=== PATIENT | female | born 1975 | race Caucasian/White ===

== ENCOUNTER 2024-05-23 10:34 | Outpatient (CLI) | payer SELFPAY ==
--- NOTE | 2024-05-23 10:41 | XR_ITS ---
FINAL REPORT CLINICAL HISTORY: Bone Infection; right foot COMPARISON: None FINDINGS: AP, oblique and lateral views of the right foot were obtained. There is no prior exam for comparison. There is no acute fracture or dislocation. There is chronic appearing deformity of the 2nd metatarsal shaft, possibly posttraumatic. 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 The joint spaces are otherwise preserved. Soft tissues are normal. IMPRESSION: No acute osseous abnormality of the right foot. Reviewed, Interpreted and Dictated by Penny Dutton MD Transcribed by Coral Garcia Authenticated and [facility]
--- NOTE | 2024-05-23 10:41 | XR_ITS ---
FINAL REPORT CLINICAL HISTORY: Bone Infection; pt states right foot COMPARISON: None FINDINGS: AP, oblique and lateral views of the left foot were obtained. There is no prior exam for comparison. There is no acute fracture or dislocation. A hallux valgus deformity is present. 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 Soft tissues are normal. IMPRESSION: No acute osseous abnormality of the left foot. Reviewed, Interpreted and Dictated by Penny Dutton MD Transcribed by Coral Garcia Authenticated and [facility]
[2024-05-23 11:16] LABS: Basophils # 0.1 K/mm3 (0-0.2); Basophils % 1.2 % (0.1-2.0); Eosinophils # 0.4 K/mm3 (0.0-0.4); Eosinophils % 3.8 % (0.1-12.0); Hematocrit 41.2 % (37.0-47.0); Hemoglobin 14.6 g/dL (12.2-16.2); Lymphocytes # 2.5 K/mm3 (0.7-4.5); Mean Corpuscular HGB Conc 35.4 g/dL (31.8-35.4); Mean Corpuscular Hemoglobin 37.9 pg (27.0-31.2); Mean Platelet Volume 8.5 fl (7.4-10.4); Monocytes # 0.3 K/mm3 (0.1-1.0); Monocytes % 3.5 % (1.7-9.3); Neutrophils % 64.4 % (37.0-80.0); Platelet Count 277 K/mm3 (142-424); Red Blood Count 3.85 M/mm3 (4.20-5.40); Red Cell Distribution Width 13.7 % (11.5-17.5); White Blood Count 9.3 K/mm3 (4.8-10.8)
[2024-05-23 12:05] LABS: Erythrocyte Sedimentation Rate 21 mm/hr (0-20)
[2024-05-23 13:01] LABS: Hemoglobin A1C 5.3 % (4.0-6.0)
[2024-05-23 15:15] LABS: Alanine Aminotransferase 28 U/L (12-78); Albumin Level 4.7 g/dl (3.5-5.0); Albumin/Globulin Ratio 1.4 (1.1-1.8); Alkaline Phosphatase 113 U/L (38-126); Anion Gap 16.4 mEq/L (5-15); Aspartate Amino Transferase 49 U/L (14-36); Blood Urea Nitrogen 6 mg/dl (7-17); Calcium 10.7 mg/dl (8.4-10.2); Carbon Dioxide 23 mmol/L (22.0-30.0); Chloride 106 mmol/L (98-107); Estimated Glomerular Filt Rate 106 ml/min (>60); GFR (African American) 128 ML/MIN (>60); Globulin 3.4 g/dL (1.3-3.2); Glucose 101 mg/dl (74-100); Potassium 4.4 mmoL/L (3.5-5.1); Sodium 141 mmol/L (136-145); Total Protein,Serum 8.1 g/dl (6.3-8.2)
[2024-05-23 15:20] LABS: C-Reactive Protein 8.4 mg/L (0-4)
== END 2024-05-23 23:59 | disposition home or self-care (01) ==
LOC: RAD 10:39
PROVIDERS: Nurse Practitioner; PCP Emergency Medicine; Visit Provider Podiatrist
DX: M79.671 Pain in right foot (principal); M79.672 Pain in left foot; M86.9 Osteomyelitis, unspecified
CPT/HCPCS: 36415; 73630; 80053; 83036; 85025; 85651; 86140